=== PATIENT | female | born 1995 | race Caucasian/White ===

== ENCOUNTER 2017-03-26 09:24 | Emergency (ER) | END 2017-03-26 10:53 | disposition home or self-care (01) ==

== ENCOUNTER 2017-06-24 19:40 | Emergency (ER) | END 2017-06-25 00:55 | disposition home or self-care (01) ==

== ENCOUNTER 2018-06-23 14:19 | Emergency (ER) | payer OTHER ==
[~2018-06-23] VITALS: Ht 160 cm; Wt 49.8 kg
[~2018-06-23 14:19] MED LIST: HYDR-4011 PO; IBUP-1561 PO; LORA-441 PO; ONDA4TAB14 PO
[2018-06-23 14:32] VITALS: Ht 160 cm; Wt 49.8 kg
[2018-06-23] MEDS ORDERED: IBUPROFEN LIQUID (PED) 20 MG/ML CUP PO STA (17:10)
[2018-06-23] MEDS ORDERED: ONDANSETRON 4 MG INJ IV STA ×2 (17:10→17:16)
[2018-06-23] MEDS ORDERED: SODIUM CHLORIDE 0.9% 500 ML BAG IV* STA (17:10)
[2018-06-23] MEDS ORDERED: SOD CHLORIDE 0.9% 1,000 ML IV STA (17:16)
[2018-06-23] MEDS ORDERED: IBUPROFEN 600 MG TAB PO ONE (17:30)
--- NOTE | 2018-06-23 17:34 | ERD ---
ER Documentation Chief Complaint Chief Complaint cough , chest congestion x 2 months with intermittent fever h/o asthma HPI 23-year-old young woman complaining of cough, nasal congestion, chest congestion, sore throat, body aches, tactile fever times 1 week but states she has had milder symptoms for the last 8 weeks. She denies rash, no abdominal pain, no vomiting or diarrhea, no dysuria, no complaints of chest pain or shortness of breath. ROS All systems reviewed and are negative except as per history of present illness. Medications Home Meds Active Scripts Cephalexin* (Keflex*) 500 Mg Capsule, 500 MG PO QID for 5 Days, CAP Prov:BROCK MARTÍNEZ MD 06/23/18 Ibuprofen* (Motrin*) 600 Mg Tab, 600 MG PO Q8 PRN for FEVER, #30 TAB Prov:BROCK MARTÍNEZ MD 06/23/18 Lorazepam* (Ativan*) 0.5 Mg Tablet, 0.5 MG PO Q8H PRN for ANXIETY, #10 TAB Prov:BEATRIZ EASLEY 06/25/17 Hydrocodone/Acetaminophen (Export 5-325 Tablet) 1 Each Tablet, 1 TAB PO Q6H PRN for PAIN, #7 TAB Prov:BEATRIZ ZABALA PA-C 03/26/17 Ibuprofen* (Motrin*) 400 Mg Tab, 400 MG PO Q6, #30 TAB Prov:BEATRIZ ZABALA PA-C 03/26/17 Ondansetron (Ondansetron Odt) 4 Mg Tab.rapdis, 4 MG PO Q6H PRN for NAUSEA AND/OR VOMITING, #10 TAB Prov:BEATRIZ ZABALA PA-C 03/26/17 Allergies Allergies: Coded Allergies: No Known Drug Allergies (Verified Allergy, Unknown, 10/14/13) PMhx/Soc Asthma History of Surgery: No Hx Respiratory Disorders: Yes (asthma) Hx Alcohol Use: No Hx Substance Use: No Hx Tobacco Use: No FmHx Family History: No diabetes Physical Exam Vitals Vital Signs Date Temp Pulse Resp B/P (MAP) Pulse Ox O2 O2 Flow FiO2 Time Delivery Rate 06/23/18 78 18 96/78 (84) 98 Room Air 19:08 06/23/18 101.2 17:32 06/23/18 101.2 87 18 121/62 99 14:32 (81) Physical Exam GENERAL: Well-developed, well-nourished, well-hydrated, febrile HEENT: Moist mucous membranes, pink conjunctiva, no cervical spine tenderness or step-off deformities, no goiter, no jaundice or icterus, extraocular movements intact without pain. No submandibular induration, and no pharyngeal erythema NEURO: Alert and oriented 3, cranial nerves II through XII intact bilaterally, pupils equal round reactive to light, no focal deficits or facial asymmetry, sensation intact distally Strength 5/5 in upper and lower extremities bilaterally CARDIAC: Regular rate and rhythm, no murmurs rubs or gallops LUNGS: Clear bilaterally no wheezing crackles or stridor ABDOMEN: Soft nontender, no guarding, no rigidity, no rebound, no psoas sign no obturator sign. Normoactive bowel sounds SKIN: Warm and dry to touch, no abrasions, contusions, or hematomas, no lacerations, no ecchymosis, no target lesions, and without ulcers EXTREMITIES: No clubbing cyanosis or edema, calves are bilaterally symmetrical, no Homans sign, no popliteal cord sign. Distal pulses equal and bilateral PSYCH: Normal affect without agitation or irritability Result Diagram: 06/23/18 1730 06/23/18 173 Results 24 hrs Laboratory Tests Test 06/23/18 17:15 06/23/18 17:30 Urine Color YELLOW Urine Clarity SLIGHTLY CLOUDY Urine pH 6.0 Urine Specific [place] 1.019 Urine Ketones 2+ mg/dL Urine Nitrite NEGATIVE mg/dL Urine Bilirubin NEGATIVE mg/dL Urine Urobilinogen NEGATIVE mg/dL Urine Leukocyte Esterase 2+ Reynold/ul Urine Microscopic RBC 8 /HPF Urine Microscopic WBC 10 /HPF Urine Squamous Epithelial Cells FEW /HPF Urine Bacteria FEW /HPF Urine Hemoglobin 3+ mg/dL Urine Glucose NEGATIVE mg/dL Urine Total Protein NEGATIVE mg/dl White Blood Count 3.1 10^3/ul Red Blood Count 4.97 10^6/ul Hemoglobin 12.6 g/dl Hematocrit 39.4 % Mean Corpuscular Volume 79.3 fl Mean Corpuscular Hemoglobin 25.4 pg Mean Corpuscular Hemoglobin Concent 32.0 g/dl Red Cell Distribution Width 14.8 % Platelet Count 161 10^3/UL Mean Platelet Volume 11.8 fl Immature Granulocytes % 0.300 % Neutrophils % 58.8 % Lymphocytes % 24.6 % Monocytes % 14.7 % Eosinophils % 1.0 % Basophils % 0.6 % Nucleated Red Blood Cells % 0.0 /100WBC Immature Granulocytes # 0.010 10^3/ul Neutrophils # 1.8 10^3/ul Lymphocytes # 0.8 10^3/ul Monocytes # 0.5 10^3/ul Eosinophils # 0.0 10^3/ul Basophils # 0.0 10^3/ul Nucleated Red Blood Cells # 0.0 10^3/ul Sodium Level 138 mmol/L Potassium Level 3.7 mmol/L Chloride Level 102 mmol/L Carbon Dioxide Level 22 mmol/L Anion Gap 14 Blood Urea Nitrogen 7 mg/dl Creatinine 0.67 mg/dl Est Glomerular Filtrat Rate mL/min > 60 mL/min Glucose Level 90 mg/dl Calcium Level 9.2 mg/dl Total Bilirubin 0.6 mg/dl Direct Bilirubin 0.00 mg/dl Indirect Bilirubin 0.6 mg/dl Aspartate Amino Transf (AST/SGOT) 25 IU/L Alanine Aminotransferase (ALT/SGPT) 19 IU/L Alkaline Phosphatase 94 IU/L Total Protein 8.5 g/dl Albumin 4.7 g/dl Globulin 3.80 g/dl Albumin/Globulin Ratio 1.23 Lipase 45 U/L Current Medications Medications Dose Sig/Rodríguez Start Time Status Last (Trade) Ordered Route PRN Stop Time Admin Dose Reason Admin Sodium 250 ml ONCE STAT 06/23/18 DC Chloride IV* 17:10 06/23/18 (NS) 17:18 Ibuprofen 400 mg ONCE STAT 06/23/18 DC (Motrin PO 17:10 06/23/18 Liquid 17:18 (Ped)) Ondansetron 2 mg ONCE STAT 06/23/18 DC HCl (Zofran IV 17:10 06/23/18 Inj) 17:18 Sodium 1,000 ml @ Q1H STAT 06/23/18 DC 06/23/18 Chloride 1,000 mls/hr IV 17:16 06/23/18 17:32 18:15 Ondansetron 4 mg ONCE STAT 06/23/18 DC 06/23/18 HCl (Zofran IV 17:16 06/23/18 17:33 Inj) 17:18 Ibuprofen 600 mg ONCE ONCE 06/23/18 DC 06/23/18 (Motrin) PO 17:30 06/23/18 17:32 17:31 Ceftriaxone 50 ml @ ONCE ONCE 06/23/18 DC 06/23/18 Sodium 100 mls/hr IVPB 18:30 06/23/18 18:25 18:59 Procedures/MDM IV line was established patient was placed on teletypesetter monitor rhythm strip revealed a sinus rhythm at about 80 bpm with upright P and T waves. Patient was afebrile I administered 1 L normal saline IV, ibuprofen 600 mg p.o. One AP view of the chest performed, read by me reveals no acute infiltrates, normal mediastinum, sharp costophrenic and cardiac borders, no air under the diaphragm. Otherwise unremarkable chest x-ray. Influenza AB swabs are negative. CBC revealed a mild leukopenia, electrolytes normal, liver function tests were normal, urinalysis positive for infection. I administered ceftriaxone 1 g IV. Differential diagnoses considered, included but not limited to acute coronary syndrome, pulmonary embolism, aortic dissection, abdominal aortic aneurysm, sepsis, stroke, meningitis, encephalitis, pneumonia, appendicitis, cholecystitis, bowel obstruction, pyelonephritis, nephrolithiasis, cystitis, as well as metabolic, hematologic, and electrolyte abnormalities. As well as abscess, cellulitis, fractures, and dislocations. Patient feels much better at this time, and vital signs are normal, symptoms have improved. I did give strict instructions to return to the ED if symptoms continue or worsen, patient will otherwise follow-up with primary care physician. Patient understood instructions and agreed to plan. Disclaimer: Inadvertent spelling and grammatical errors are likely due to EHR/ dictation software use and do not reflect on the overall quality of patient care. Also, please note that the electronic time recorded on this note does not necessarily reflect the actual time of the patient encounter. Departure Diagnosis: Primary Impression: Acute UTI Additional Impression: Acute URI Condition: Good BROCK MARTÍNEZ MD Jun 23, 2018 17:33
[2018-06-23] MEDS ORDERED: CEFTRIAXONE 1 GM/50 ML (PMX) 50 ML IVPB ONE (18:30)
[2018-06-23] MEDS ORDERED: IBUP-1542 PO (18:56)
[2018-06-23] MEDS ORDERED: CEPH-443 PO (18:56)
[2018-06-23 19:08] VITALS: BP 96/78; PULSE 78; RESP 18
== END 2018-06-23 19:10 | disposition home or self-care (01) ==
LOC: FTE 14:19
DX: N39.0 Urinary tract infection, site not specified (principal); J06.9 Acute upper respiratory infection, unspecified; J45.909 Unspecified asthma, uncomplicated
CPT/HCPCS: 36415; 71045; 80053; 81001; 83690; 85025; 87040; 87086; 87400; 96374; 96375; J0696; J2405; J7030; J7040; Z7502; Z7610